=== PATIENT | male | born 1960 | race Caucasian/White ===

== ENCOUNTER 2016-07-10 18:58 | Emergency (ER) | payer BC ==
[~2016-07-10] VITALS: Ht 185.4 cm; Wt 106.6 kg
[~2016-07-10 18:58] MED LIST: [UNRECOGNIZED DRUG - OTHER]
[2016-07-10] MEDS ORDERED: AZIT250T PO (19:25)
[2016-07-10] MEDS ORDERED: METOCLOPRAMIDE HCL 10 MG/2 ML VIAL IV ONE (20:30)
[2016-07-10] MEDS ORDERED: KETOROLAC TROMETHAMINE 15 MG INJ IV ONE (20:30)
[2016-07-10] MEDS ORDERED: IV NORMAL SALINE 1000 ML BAG IV ONE (20:30)
[2016-07-10 20:47] LABS: EOSINOPHILS # (AUTO) 0.1 K/uL (0.0-0.7); EOSINOPHILS % (AUTO) 0.6 % (0.0-7.0); HEMATOCRIT 52.3 % (40-50); HEMOGLOBIN 17.8 G/DL (14.0-18.0); LYMPHOCYTES # (AUTO) 0.3 K/UL (0.8-4.8); LYMPHOCYTES % (AUTO) 3.3 % (20.5-51.5); MEAN CORPUSCULAR HGB CONC 34 g/dL (32.0-37.0); MEAN CORPUSCULAR VOLUME 91.1 FL (82.0-92.0); MONOCYTES # (AUTO) 0.7 K/UL (0.1-1.30); MONOCYTES % (AUTO) 8.7 % (0.0-11.0); NEUTROPHILS # (AUTO) 7.5 K/UL (1.8-8.9); NEUTROPHILS % (AUTO) 87.4 % (38.5-71.5); PLATELET COUNT (AUTO) 216 K/UL (150-450); RED BLOOD CELL COUNT(AUTO) 5.75 MIL/UL (4.7-6.1); WHITE BLOOD COUNT (AUTO) 8.6 K/UL (4.0-11.2)
[2016-07-10] MEDS ORDERED: METOCLOPRAMIDE HCL 10 MG/2 ML VIAL ONE (20:47)
[2016-07-10] MEDS ORDERED: KETOROLAC TROMETHAMINE 15 MG INJ ONE (20:47)
[2016-07-10 20:59] LABS: POTASSIUM 4.2 mmol/L (3.5-5.1)
[2016-07-10 21:02] LABS: CREATININE 2.4 mg/dL (0.6-1.3)
--- NOTE | 2016-07-10 21:10 | NUR ---
Patient refused EKG
[2016-07-10 21:13] LABS: BILIRUBIN,DIRECT 0.2 mg/dL (0.0-0.2); BILIRUBIN,TOTAL 0.9 mg/dL (0.2-1.0)
--- NOTE | 2016-07-10 21:18 | NUR ---
IV removed. Catheter intact and site benign. Pressure and 4x4 gauze applied to site. No bleeding noted.
--- NOTE | 2016-07-10 21:25 | NUR ---
Patient elope after patient ask IV hep lock to be d/c'ed. Dr Chava allen aware
== END 2016-07-10 21:25 | disposition left against medical advice (07) ==
LOC: ER 19:05
DX: E86.0 Dehydration (principal); R19.7 Diarrhea, unspecified; R11.2 Nausea with vomiting, unspecified; R51 Headache; F10.20 Alcohol dependence, uncomplicated; Z86.19 Personal history of other infectious and parasitic diseases
CPT/HCPCS: 36415; 70030-TC; 83605; 83690; 85025; 87040; 93005; A4663; J1885; J2765; J7030